=== PATIENT | female | born 1965 | race African-American/Black ===

== ENCOUNTER 2018-02-22 08:50 | Emergency (ER) | payer OTHER ==
[~2018-02-22] VITALS: Ht 162.6 cm; Wt 88.8 kg
[~2018-02-22 08:50] MED LIST: ASPIRIN81 M1 PO; IRON27 MG PO; LOVASTATIN40 MG PO; METFORMIN HCL1000 MG PO
[2018-02-22] MEDS ORDERED: NAPROSYN500 MG PO (10:06)
[2018-02-22 10:33] VITALS: BP 119/82
== END 2018-02-22 10:34 | disposition home or self-care (01) ==
LOC: EME 08:50
DX: Z04.1 Encounter for examination and observation following transport accident (principal); V43.62XA Car passenger injured in collision with other type car in traffic accident, initial encounter; Y92.410 Unspecified street and highway as the place of occurrence of the external cause; E11.9 Type 2 diabetes mellitus without complications
CPT/HCPCS: 99281; 99283

== ENCOUNTER 2018-03-21 12:29 | Emergency (ER) | payer OTHER ==
[~2018-03-21] VITALS: Ht 162.6 cm; Wt 88.0 kg
[~2018-03-21 12:29] MED LIST changes: +NAPROSYN500 MG PO
[2018-03-21] MEDS ORDERED: NAPROSYN500 MG PO (13:12)
[2018-03-21] MEDS ORDERED: FLEXERIL10 MG PO (13:12)
[2018-03-21 13:32] VITALS: BP 134/95
== END 2018-03-21 13:33 | disposition home or self-care (01) ==
LOC: EME 12:29
DX: S46.912A Strain of unspecified muscle, fascia and tendon at shoulder and upper arm level, left arm, initial encounter (principal); M54.5 Low back pain; V43.62XA Car passenger injured in collision with other type car in traffic accident, initial encounter; Y92.410 Unspecified street and highway as the place of occurrence of the external cause; E11.9 Type 2 diabetes mellitus without complications
CPT/HCPCS: 99281; 99283